=== PATIENT | male | born 1965 | race Caucasian/White ===

== ENCOUNTER 2023-12-28 11:00 | Emergency (ER) | payer OTHER, SELFPAY ==
[2023-12-28] VITALS (8 sets, daily range): BP systolic 142–173; BP diastolic 73–82; PULSE 69–79; RESP 13–19; TEMP 36.6; O2SAT 93–98; BMI 32.5
--- NOTE | 2023-12-28 11:25 | PC.NURSE ---
Pt reports waking up this mornoing at 0300 with a solvent smell. Pt reports feeling dizzy. Pt says that smell and nausea come in waves. Has hx of dvt and factor 5. Pt takes eliquis. a&ox4.
--- NOTE | 2023-12-28 12:11 | ED.GENADULT ---
HPI - General Adult <Shalini Leung MD - Last Filed: 01/15/24 02:30> General Chief complaint: Dizziness Stated complaint: Nausea, Dizzyness, history stroke/heart atk Time Seen by Provider: 12/28/23 11:14 Mode of arrival: Family Vehicle History of Present Illness HPI narrative: 58-year-old gentleman with with a history of factor 5 Leiden deficiency, currently anticoagulated presents complaining of recurrent episodes of nausea and dizziness lasting for 30 seconds to 3-5 minutes each of these episodes associated with an odd burnt type smell that is consistent with each episode and resolves in between episodes. He does not describe any positional component to this. This awoke him abruptly 3:00 a.m. this morning. While he has been nauseated he has not had any emesis. He has not complaining of abdominal pain, constipation, chest pain, palpitations, headache currently, no recent fevers or cough. Related Data Previous Rx's Medication Instructions Recorded ondansetron 4 mg disintegrating 4 mg PO Q8H PRN nausea and 12/28/23 tablet vomiting #10 tabs Allergies Allergy/AdvReac Type Severity Reaction Status Date / Time No Known Drug Allergies Allergy Verified 12/28/23 11:17 Review of Systems <Shalini Leung MD - Last Filed: 01/15/24 02:30> Review of Systems Narrative: Pertinent positive and negative findings as per HPI Patient History <Shalini Leung MD - Last Filed: 01/15/24 02:30> Social History Smoking Status: Never smoker Smoking Status: Never smoker Substance Use Type: does not use Exam <Shalini Leung MD - Last Filed: 01/15/24 02:30> Initial Vital Signs Initial Vital Signs: Vital Signs Temperature 98 F 12/28/23 11:13 Pulse Rate 79 12/28/23 11:13 Respiratory Rate 16 12/28/23 11:13 Blood Pressure 173/79 H 12/28/23 11:13 Pulse Oximetry 96 12/28/23 11:13 Oxygen Delivery Method Room Air 12/28/23 11:13 General: Healthy appearing, in no acute distress. Able to give a complete and coherent history. Well-nourished well-developed HEENT: Moist mucous membranes, normal sclera with reactive pupils, Respiratory: Lungs are clear to auscultation, no wheezing no rales no rhonchi. Full and symmetrical air movement Cardiac: Regular rate and rhythm no murmurs no bruits Abdomen: Soft, nontender, good bowel tones, no flank pain Skin: Warm and dry, no rashes Neurologic: Grossly neurologically intact with no obvious asymmetries or abnormalities, normal reflexes bilaterally Extremities: No trauma, well perfused Psych: Cooperative, appropriate insight and affect <Nessa Oden DO - Last Filed: 12/28/23 16:41> Initial Vital Signs Initial Vital Signs: Vital Signs Temperature 98 F 12/28/23 11:13 Pulse Rate 79 12/28/23 11:13 Respiratory Rate 16 12/28/23 11:13 Blood Pressure 173/79 H 12/28/23 11:13 Pulse Oximetry 96 12/28/23 11:13 Oxygen Delivery Method Room Air 12/28/23 11:13 Course <Shalini Leung MD - Last Filed: 01/15/24 02:30> Orders Ordered: Discontinued Medications Aspirin (Aspirin 81 Mg Chew Tab) 324 mg PO NOW ONE Stop: 12/28/23 12:16 Last Admin: 12/28/23 13:55 Dose: Not Given Documented By: STEVEN Vital Signs Vital signs: Vital Signs - 8 hr 12/28/23 11:13 12/28/23 11:45 12/28/23 12:00 Temperature 98 F Pulse Rate 79 70 70 Respiratory Rate 16 19 15 Blood Pressure 173/79 H Pulse Oximetry 96 98 97 Oxygen Delivery Method Room Air 12/28/23 12:00 12/28/23 12:30 12/28/23 12:30 Temperature Pulse Rate 69 Respiratory Rate 13 Blood Pressure 144/82 H 142/73 H Pulse Oximetry 98 Oxygen Delivery Method 12/28/23 13:59 12/28/23 14:00 12/28/23 14:00 Temperature Pulse Rate 69 73 Respiratory Rate 15 Blood Pressure 144/78 H Pulse Oximetry 93 97 Oxygen Delivery Method 12/28/23 15:57 12/28/23 15:58 12/28/23 15:58 Temperature Pulse Rate 76 Respiratory Rate 14 Blood Pressure 143/80 H Pulse Oximetry 98 96 Oxygen Delivery Method Room Air <Nessa Oden DO - Last Filed: 12/28/23 16:41> Orders Ordered: Discontinued Medications Aspirin (Aspirin 81 Mg Chew Tab) 324 mg PO NOW ONE Stop: 12/28/23 12:16 Last Admin: 12/28/23 13:55 Dose: Not Given Documented By: STEVEN Vital Signs Vital signs: Vital Signs - 8 hr 12/28/23 11:13 12/28/23 11:45 12/28/23 12:00 Temperature 98 F Pulse Rate 79 70 70 Respiratory Rate 16 19 15 Blood Pressure 173/79 H Pulse Oximetry 96 98 97 Oxygen Delivery Method Room Air 12/28/23 12:00 12/28/23 12:30 12/28/23 12:30 Temperature Pulse Rate 69 Respiratory Rate 13 Blood Pressure 144/82 H 142/73 H Pulse Oximetry 98 Oxygen Delivery Method 12/28/23 13:59 12/28/23 14:00 12/28/23 14:00 Temperature Pulse Rate 69 73 Respiratory Rate 15 Blood Pressure 144/78 H Pulse Oximetry 93 97 Oxygen Delivery Method 12/28/23 15:57 12/28/23 15:58 12/28/23 15:58 Temperature Pulse Rate 76 Respiratory Rate 14 Blood Pressure 143/80 H Pulse Oximetry 98 96 Oxygen Delivery Method Room Air Medical Decision Making <Shailni Leung MD - Last Filed: 01/15/24 02:30> Lab Data 12/28/23 11:13 12/28/23 11:13 Labs: Lab Results 12/28/23 Range/Units 11:13 WBC 8.3 (4.5-11.0) X10^3/uL RBC 4.60 (4.5-5.9) X10^6/uL Hgb 13.2 L (13.5-17.5) g/dL Hct 39.9 L (41-53) % MCV 86.8 (80-100) fL MCH 28.7 (26-34) PG MCHC 33.1 (30-36) % RDW 14.4 (11.6-14.8) % Plt Count 257 (150-400) X10^3/uL Neut % (Auto) 76.3 H (50-75) % Lymph % (Auto) 12.6 L (25-40) % [place] % (Auto) 9.2 (3-14) % Eos % (Auto) 0.9 L (2-4) % Baso % (Auto) 1.0 (0-2) % Neut # (Auto) 6300 (3041-3338) /uL Lymph # (Auto) 1000 L (3183-4446) /uL [place] # (Auto) 800 (0-900) /uL Eos # (Auto) 100 (0-450) /uL Baso # (Auto) 100 (0-100) /uL PT 14.7 H (9.4-12.5) SECONDS INR 1.3 (0.9-1.3) APTT 44 H (25.1-36.5) SECONDS Sodium 135 L (137-145) mmol/L Potassium 4.5 (3.4-5.1) mmol/L Chloride 106 (98-107) mmol/L Carbon Dioxide 23 (22-32) mmol/L BUN 19 (9-20) mg/dL Creatinine 0.88 (0.66-1.25) mg/dL Estimated GFR > 60 (>60) mL/min BUN/Creatinine Ratio 21.6 (6-22) Glucose 112 H (80-110) mg/dL Calcium 9.0 (8.4-10.2) mg/dL Magnesium 2.1 (1.6-2.3) mg/dL Total Bilirubin 0.8 (0.2-1.3) mg/dL AST 36 (17-59) IU/L ALT 42 (<50) IU/L Alkaline Phosphatase 47 (38-126) U/L Total Creatine Kinase 113 (55-170) U/L Troponin I < 0.012 (0.01-0.034) ng/mL NT-Pro-B Natriuret Pep 109 (<125) pg/mL Total Protein 7.3 (6.3-8.2) g/dL Albumin 4.3 (3.5-5.0) g/dL Globulin 3.0 (1.7-4.1) g/dL Albumin/Globulin Ratio 1.4 (1.0-2.8) Lipase 104 (23-300) U/L Prolactin 7.4 (3.7-17.9) ng/mL MDM Narrative Medical decision making narrative: CC: Abrupt onset at 3:00 a.m. nausea, dizziness associated with abnormal smell. Symptoms waxing and waning Data collected from: patient Differential considered: Seizures, TIA, stroke, mass, viral syndrome, given the acute onset and cyclic repetitive nature with complete resolution of symptoms in between I do not think this is a benign positional vertigo Exam documented above, pertinent findings include: Exam is benign including neurologic exam. Patient does note that in the our that he has been in the emergency department he has had 3 discrete episodes of the dizziness with associated smell Lab Test results independently reviewed as above. Pertinent findings: CBC is unremarkable Chemistries are reassuring Troponin is undetectable Prolactin is within normal limits suggesting these are not seizures Imaging studies independently reviewed: Chest x-ray is unremarkable Consultations: Treatments: Re-evaluations: Discussion: <Nessa Oden, - Last Filed: 12/28/23 16:41> Lab Data Labs: Lab Results 12/28/23 Range/Units 11:13 WBC 8.3 (4.5-11.0) X10^3/uL RBC 4.60 (4.5-5.9) X10^6/uL Hgb 13.2 L (13.5-17.5) g/dL Hct 39.9 L (41-53) % MCV 86.8 (80-100) fL MCH 28.7 (26-34) PG MCHC 33.1 (30-36) % RDW 14.4 (11.6-14.8) % Plt Count 257 (150-400) X10^3/uL Neut % (Auto) 76.3 H (50-75) % Lymph % (Auto) 12.6 L (25-40) % [place] % (Auto) 9.2 (3-14) % Eos % (Auto) 0.9 L (2-4) % Baso % (Auto) 1.0 (0-2) % Neut # (Auto) 6300 (3421-6861) /uL Lymph # (Auto) 1000 L (3000-4695) /uL [place] # (Auto) 800 (0-900) /uL Eos # (Auto) 100 (0-450) /uL Baso # (Auto) 100 (0-100) /uL PT 14.7 H (9.4-12.5) SECONDS INR 1.3 (0.9-1.3) APTT 44 H (25.1-36.5) SECONDS Sodium 135 L (137-145) mmol/L Potassium 4.5 (3.4-5.1) mmol/L Chloride 106 (98-107) mmol/L Carbon Dioxide 23 (22-32) mmol/L BUN 19 (9-20) mg/dL Creatinine 0.88 (0.66-1.25) mg/dL Estimated GFR > 60 (>60) mL/min BUN/Creatinine Ratio 21.6 (6-22) Glucose 112 H (80-110) mg/dL Calcium 9.0 (8.4-10.2) mg/dL Magnesium 2.1 (1.6-2.3) mg/dL Total Bilirubin 0.8 (0.2-1.3) mg/dL AST 36 (17-59) IU/L ALT 42 (<50) IU/L Alkaline Phosphatase 47 (38-126) U/L Total Creatine Kinase 113 (55-170) U/L Troponin I < 0.012 (0.01-0.034) ng/mL NT-Pro-B Natriuret Pep 109 (<125) pg/mL Total Protein 7.3 (6.3-8.2) g/dL Albumin 4.3 (3.5-5.0) g/dL Globulin 3.0 (1.7-4.1) g/dL Albumin/Globulin Ratio 1.4 (1.0-2.8) Lipase 104 (23-300) U/L Prolactin 7.4 (3.7-17.9) ng/mL Imaging Data MR Brain: Radiologist's Impression: PROCEDURE: MR HEAD/BRAIN WO/W CON INDICATIONS: stuttering vertigo and abnormal smell TECHNIQUE: Noncontrast axial T1 spin echo, axial T2 fast spin echo, sagittal and axial FLAIR, coronal T2 fast spin echo, axial gradient echo, axial diffusion and ADC through the brain. After the administration of contrast, axial and coronal and sagittal T1 spin echo with fat saturation through the brain. COMPARISON: None. FINDINGS: Image quality: Excellent. CSF spaces: Basal cisterns are patent. No extra-axial fluid collections. Ventricles are normal in size and shape. Brain: No midline shift. No intracranial bleeds or masses. No abnormal intracranial enhancement. There is cerebral volume loss for age. There is periventricular white matter chronic small vessel ischemic change. The brainstem appears normal. Diffusion-weighted images demonstrate no acute infarct. No chronic ischemic insults. Normal intravascular flow voids are present. Skull and face: Calvarial marrow is normal in signal. Orbits appear normal. Sinuses: Sinuses and mastoids appear clear. IMPRESSION: 1. No acute infarction. No intracranial bleed, midline shift or mass effect. 2. Age related volume loss and mild white matter chronic small vessel ischemic changes. 3. No area of abnormal intracranial enhancement. Dictated by: Yasir White M.D. on 12/28/2023 at 15:24 MDM Narrative Medical decision making narrative: CC: Abrupt onset at 3:00 a.m. nausea, dizziness associated with abnormal smell. Symptoms waxing and waning Data collected from: patient Differential considered: Seizures, TIA, stroke, mass, viral syndrome, given the acute onset and cyclic repetitive nature with complete resolution of symptoms in between I do not think this is a benign positional vertigo Exam documented above, pertinent findings include: Exam is benign including neurologic exam. Patient does note that in the our that he has been in the emergency department he has had 3 discrete episodes of the dizziness with associated smell Lab Test results independently reviewed as above. Pertinent findings: CBC is unremarkable Chemistries are reassuring Troponin is undetectable Prolactin is within normal limits suggesting these are not seizures Imaging studies independently reviewed: Chest x-ray is unremarkable MRI brain no acute abnormality Consultations: Treatments: ASA Re-evaluations: No neuro deficits at baseline Discussion: Dr. Oden-patient signed out to me by Dr. Leung I have seen evaluated patient myself. MRI results have returned do not show any acute abnormality. Patient has had 3 discrete episodes of significant smell and dizziness no vomiting. He reports that he has not had any sort of shaking loss of consciousness no staring off into space no headache focal deficits or any other symptoms. At this time unclear what caused his significant smell and dizziness. Discussed with patient and strict return precautions when to return to the ED may require follow-up with PCP and possibly Neurology. Discharge Plan Departure Patient Disposition: Home Clinical Impression: Dizziness Instructions: DI for Dizziness-Nonvertigo Activity Restrictions/Additional Instructions: *You have been diagnosed with dizziness *What to do: At this time your MRI and blood work are overall reassuring. Unclear exactly what caused your significant sense of smell and dizziness. I am glad to hear that it has improved. You may require follow-up with your primary care provider and possibly Neurology. *Continue to take medications as directed Zofran 4 mg every 8 hours if needed for nausea or vomiting *Follow up with your primary care provider in 2-3 days or call [phone] *Return to ER if you should have patient droop difficulty speaking weakness persistent vomiting worsening dizziness chest pain palpitations [or] any new, worsening or concerning symptoms Prescriptions: New ondansetron 4 mg tablet,disintegrating 4 mg PO Q8H PRN (Reason: nausea and vomiting) Qty: 10 0RF Stand Alone Forms: Patient Portal/API
--- NOTE | 2023-12-28 12:15 | DI.RAD.S_ITS ---
PROCEDURE: XR CHEST 1V INDICATIONS: chest pain TECHNIQUE: One view of the chest was acquired. COMPARISON: None. FINDINGS: Surgical changes and devices: None. Lungs and pleura: Lungs are clear. No pleural effusions or pneumothorax. Mediastinum: Mediastinal contours appear normal. Heart size is normal. Bones and chest wall: No suspicious bony lesions. Overlying soft tissues appear unremarkable. IMPRESSION: No acute cardiopulmonary pathology. Dictated by: Yasir White M.D. on 12/28/2023 at 12:33 Approved by: Yasir White M.D. on 12/28/2023 at 12:33
[2023-12-28 12:22] LABS: INR 1.3 (0.9-1.3); Prothrombin Time 14.7 SECONDS (9.4-12.5)
[2023-12-28 12:24] LABS: PTT Partial Thromboplastin Tim 44 SECONDS (25.1-36.5)
[2023-12-28 12:27] LABS: Add Manual Diff / Slide Review NO; Basophils Absolute Auto 100 /uL (0-100); Eosinophils Absolute Auto 100 /uL (0-450); Eosinophils Percent Auto 0.9 % (2-4); Hematocrit 39.9 % (41-53); Hemoglobin 13.2 g/dL (13.5-17.5); Lymphocytes Absolute Auto 1000 /uL (1100-4500); Lymphocytes Percent Auto 12.6 % (25-40); Mean Corpuscular HGB Conc 33.1 % (30-36); Mean Corpuscular Hemoglobin 28.7 PG (26-34); Mean Corpuscular Volume 86.8 fL (80-100); Monocytes Absolute Auto 800 /uL (0-900); Monocytes Percent Auto 9.2 % (3-14); Neutrophils Absolute Auto 6300 /uL (1500-7000); Neutrophils Percent Auto 76.3 % (50-75); Platelet Count 257 X10^3/uL (150-400); Red Cell Distribution Width 14.4 % (11.6-14.8); White Blood Cell Count 8.3 X10^3/uL (4.5-11.0)
[2023-12-28 12:28] LABS: Alanine Aminotransferase 42 IU/L (<50); Albumin 4.3 g/dL (3.5-5.0); Albumin Globulin Ratio 1.4 (1.0-2.8); Alkaline Phosphatase 47 U/L (38-126); Aspartate Aminotransferase 36 IU/L (17-59); BUN Creatinine Ratio 21.6 (6-22); Bilirubin Total 0.8 mg/dL (0.2-1.3); Blood Urea Nitrogen 19 mg/dL (9-20); Carbon Dioxide 23 mmol/L (22-32); Chloride 106 mmol/L (98-107); Creatine Kinase 113 U/L (55-170); Estimated Glomerular Filt Rate > 60 mL/min (>60); Glucose 112 mg/dL (80-110); HEMOLYSIS 50 (0-50); Lipase 104 U/L (23-300); Magnesium 2.1 mg/dL (1.6-2.3); Potassium 4.5 mmol/L (3.4-5.1); Sodium 135 mmol/L (137-145); Total Protein 7.3 g/dL (6.3-8.2)
[2023-12-28 12:38] LABS: NT-proBNP (BNP-Adult 18+) 109 pg/mL (<125); Troponin I < 0.012 ng/mL (0.01-0.034)
--- NOTE | 2023-12-28 12:46 | DI.MRI.S_ITS ---
PROCEDURE: MR HEAD/BRAIN WO/W CON INDICATIONS: stuttering vertigo and abnormal smell TECHNIQUE: Noncontrast axial T1 spin echo, axial T2 fast spin echo, sagittal and axial FLAIR, coronal T2 fast spin echo, axial gradient echo, axial diffusion and ADC through the brain. After the administration of contrast, axial and coronal and sagittal T1 spin echo with fat saturation through the brain. COMPARISON: None. FINDINGS: Image quality: Excellent. CSF spaces: Basal cisterns are patent. No extra-axial fluid collections. Ventricles are normal in size and shape. Brain: No midline shift. No intracranial bleeds or masses. No abnormal intracranial enhancement. There is cerebral volume loss for age. There is periventricular white matter chronic small vessel ischemic change. The brainstem appears normal. Diffusion-weighted images demonstrate no acute infarct. No chronic ischemic insults. Normal intravascular flow voids are present. Skull and face: Calvarial marrow is normal in signal. Orbits appear normal. Sinuses: Sinuses and mastoids appear clear. IMPRESSION: 1. No acute infarction. No intracranial bleed, midline shift or mass effect. 2. Age related volume loss and mild white matter chronic small vessel ischemic changes. 3. No area of abnormal intracranial enhancement. Dictated by: Yasir White M.D. on 12/28/2023 at 15:24 Approved by: Yasir White M.D. on 12/28/2023 at 15:26
[2023-12-28 13:23] LABS: Prolactin 7.4 ng/mL (3.7-17.9)
== END 2023-12-28 16:03 | disposition home or self-care (01) ==
PROVIDERS: Emergency Medicine; Emergency Provider Emergency Medicine
DX: R42 Dizziness and giddiness (principal); R11.0 Nausea
CPT/HCPCS: 36415; 70553; 71045; 80053; 82550; 83690; 83735; 83880; 84146; 84484; 85025; 85610; 85730; 99284